=== PATIENT | male | born 1960 | race Two or more races ===

== ENCOUNTER 2022-11-28 04:47 | Emergency (ER) | payer MEDICARE ==
[~2022-11-28] VITALS: Ht 165.1 cm; Wt 62.0 kg
[2022-11-28 04:50] VITALS: O2SAT 98
[2022-11-28 05:09] LABS: HEMATOCRIT. 41.5 % (42.0-52.0); HEMOGLOBIN. 14.5 g/dL (14.0-18.0); MEAN CORPUSCULAR HGB CONC 34.8 g/dL (31.0-37.0); MEAN CORPUSCULAR VOLUME 94.9 fL (80.0-94.0); MEAN PLATELET VOLUME 9.7 fl (7.4-10.4); PLATELET 75 x1000/uL (130-400); RED BLOOD CELL COUNT 4.38 mill/uL (4.7-6.1); RED CELL DISTRIBUTION WIDTH 13.3 % (11.6-14.6); WHITE BLOOD COUNT 5.4 x1000/uL (4.5-11.0)
[2022-11-28 05:15] LABS: DIFFERENTIAL COMMENT 1
[2022-11-28 05:17] LABS: PLATELET ESTIMATE DECREASED
[2022-11-28 05:21] LABS: CALCIUM 7.9 mg/dL (8.5-10.1); CHLORIDE 108 mEq/L (98-107); INDEX HEMOLYSI 1 (1-3); INDEX ICTERIC 1 (1-4); INDEX LIPEMIC 1 (1-3); POTASSIUM 3.7 mEq/L (3.5-5.1); SODIUM 136 mEq/L (136-145)
[2022-11-28 05:29] LABS: ALANINE AMINOTRANSFERASE 38 IU/L (13-61); ALBUMIN 3.4 g/dL (3.4-5.0); ASPARTATE AMINOTRANSFERASE 46 IU/L (15-37); BILIRUBIN TOTAL 0.9 mg/dL (0.1-1.0); CARBON DIOXIDE 24 mEq/L (21-32); CREATININE 0.8 mg/dL (0.6-1.3); GLUCOSE 113 mg/dL (70-105); PROTEIN TOTAL 6.2 g/dL (6.0-8.3); TROPONIN I HIGH SENSITIVITY 20 ng/L (<78); UREA NITROGEN BLOOD 22 mg/dL (7-21)
[2022-11-28 07:36] LABS: NT PRO B-TYPE NATRIURETIC PEP 135 pg/mL (5-125); TROPONIN I HIGH SENSITIVITY 16 ng/L (<78)
[2022-11-28] MEDS ORDERED: ACETAMINOPHEN 325MG TABLET PO ONE (08:45)
[2022-11-28 09:30] LABS: CLARITY URINE CLEAR (CLEAR); COLOR URINE DARK YELLOW (YELLOW); GLUCOSE URINE NEGATIVE (NEGATIVE); KETONES URINE 1+ (NEGATIVE); LEUKOCYTE ESTERASE URINE 1+ (NEGATIVE); NITRITE URINE NEGATIVE (NEGATIVE); OCCULT BLOOD URINE 2+ (NEGATIVE); PH URINE 6.5 (4.5-8.0); PROTEIN URINE TRACE (NEGATIVE); SPECIFIC GRAVITY URINE 1.029 (1.005-1.030)
[2022-11-28 09:46] LABS: BACTERIA URINE 2+; MUCUS URINE 2+ /lpf (NONE/TRACE); SQUAMOUS EPITHELIAL CELL URINE NONE SEEN /lpf (RARE/1+); YEAST URINE NONE SEEN
[2022-11-28] MEDS ORDERED: CEFTRIAXONE 1GM PREMIX 50 ML IV ONE (10:00)
[2022-11-28 11:00] VITALS: BP 105/64; PULSE 82; RESP 18; TEMP 100
[2022-11-28] MEDS ORDERED: CIPR-263 MT (11:00)
== END 2022-11-28 11:36 | disposition home or self-care (01) ==
LOC: ER 04:47
DX: N39.0 Urinary tract infection, site not specified (principal); Z20.822 Contact with and (suspected) exposure to COVID-19
CPT/HCPCS: 99285; 96365; 71045; 87426; 80053; 81003; 83880; 85025; 84484; 36415; 93005; J0696; C9803

== ENCOUNTER 2023-01-18 13:11 | Emergency (ER) | payer MEDICARE ==
[~2023-01-18] VITALS: Ht 165.1 cm; Wt 70.0 kg
[~2023-01-18 13:11] MED LIST: FAMO20TA8 MT; P20 MT
[2023-01-18 13:18] VITALS: O2SAT 99
[2023-01-18] MEDS ORDERED: HYDROCODONE/ACETAMINOPHEN 5/325MG TABLET PO ONE (15:15)
[2023-01-18 15:51] LABS: HEMATOCRIT. 46.2 % (42.0-52.0); HEMOGLOBIN. 15.5 g/dL (14.0-18.0); MEAN CORPUSCULAR HEMOGLOBIN 32.7 pg (28.0-32.0); MEAN CORPUSCULAR HGB CONC 33.5 g/dL (31.0-37.0); MEAN CORPUSCULAR VOLUME 97.7 fL (80.0-94.0); MEAN PLATELET VOLUME 9.2 fl (7.4-10.4); PLATELET 110 x1000/uL (130-400); RED BLOOD CELL COUNT 4.73 mill/uL (4.7-6.1); RED CELL DISTRIBUTION WIDTH 13.2 % (11.6-14.6); WHITE BLOOD COUNT 11.3 x1000/uL (4.5-11.0)
[2023-01-18 15:53] LABS: DIFFERENTIAL COMMENT 1
[2023-01-18 15:57] LABS: INDEX HEMOLYSI 1 (1-3); INDEX ICTERIC 1 (1-4); INDEX LIPEMIC 1 (1-3); POTASSIUM 4.4 mEq/L (3.5-5.1); SODIUM 141 mEq/L (136-145)
[2023-01-18 15:58] LABS: PARTIAL THROMBOPLASTIN TIME 27.3 sec (23.4-31.0); PROTHROMBIN TIME 10.9 sec (9.6-11.0)
[2023-01-18 16:08] LABS: ALANINE AMINOTRANSFERASE 30 IU/L (13-61); ALBUMIN 3.2 g/dL (3.4-5.0); ASPARTATE AMINOTRANSFERASE 23 IU/L (15-37); BILIRUBIN TOTAL 0.9 mg/dL (0.1-1.0); CALCIUM 8.2 mg/dL (8.5-10.1); CREATININE 0.8 mg/dL (0.6-1.3); GLUCOSE 87 mg/dL (70-105); NT PRO B-TYPE NATRIURETIC PEP 58 pg/mL (5-125); PROTEIN TOTAL 6.4 g/dL (6.0-8.3); TROPONIN I HIGH SENSITIVITY 8 ng/L (<78); UREA NITROGEN BLOOD 18 mg/dL (7-21)
[2023-01-18 16:23] LABS: CARBON DIOXIDE 27 mEq/L (21-32); CHLORIDE 113 mEq/L (98-107)
[2023-01-18 16:58] LABS: PLATELET ESTIMATE DECREASED
[2023-01-18] MEDS ORDERED: TOPUD MT (19:11)
[2023-01-18] MEDS ORDERED: IBUP-2029 MT (19:11)
[2023-01-18] MEDS ORDERED: DOXY100C5 MT (19:11)
[2023-01-18 20:16] VITALS: BP 135/84; PULSE 70; RESP 18; TEMP 98.4
== END 2023-01-18 20:17 | disposition home or self-care (01) ==
LOC: ER 13:11
DX: N45.1 Epididymitis (principal)
CPT/HCPCS: 36415; 71045; 76870; 80053; 83880; 84484; 85025; 93005; 93976; 99285

== ENCOUNTER 2023-04-21 20:32 | Emergency (ER) | payer MEDICARE ==
[~2023-04-21] VITALS: Ht 162.6 cm; Wt 63.0 kg
[~2023-04-21 20:32] MED LIST changes: +DOXY100C5 MT; +IBUP-2029 MT; +TOPUD MT
[2023-04-21 20:46] VITALS: TEMP 98.5; O2SAT 95
[2023-04-21] MEDS ORDERED: DEXAMETHASONE 10 MG/ML VIAL IM NR (23:45)
[2023-04-21] MEDS ORDERED: IBUPROFEN 400MG TABLET PO ONE (23:45)
[2023-04-21] MEDS ORDERED: DEXAMETHASONE 10 MG/ML VIAL IM ONE (23:45)
[2023-04-22] MEDS: IBUPROFEN 400MG TABLET PO NR ×2 (00:33→00:34)
[2023-04-22 00:34] VITALS: BP 144/88; PULSE 95; RESP 20
[2023-04-22] MEDS ORDERED: IBUP-2028 MT (01:30)
== END 2023-04-22 02:02 | disposition home or self-care (01) ==
LOC: ER 20:32
DX: U07.1 COVID-19 (principal); J02.9 Acute pharyngitis, unspecified
CPT/HCPCS: 99284; 71045; 87426; 87430; 87070; 87804 ×2; 96372; J1100; C9803

== ENCOUNTER 2024-03-19 16:00 | Emergency (ER) | payer MEDICARE ==
[~2024-03-19] VITALS: Ht 170.2 cm; Wt 68.0 kg
[~2024-03-19 16:00] MED LIST changes: +IBUP-2028 MT
[2024-03-19 16:01] VITALS: TEMP 97.9; O2SAT 98
[2024-03-19] MEDS: MAGNESIUM/ALUMINUM HYDROXIDE/SIMETHICONE 30ML UDC PO ONE (16:25)
[2024-03-19] MEDS: FAMOTIDINE 20MG TABLET PO ONE (16:26)
[2024-03-19 17:07] LABS: CHLORIDE 112 mEq/L (98-107); POTASSIUM 3.6 mEq/L (3.5-5.1); SODIUM 143 mEq/L (136-145)
[2024-03-19 17:08] LABS: BASOPHILS % 0.5 % (0.0-2.0); CALCIUM 8.6 mg/dL (8.7-10.4); CARBON DIOXIDE 25 mEq/L (21-32); EOSINOPHILS % 8.4 % (0.0-5.0); HEMATOCRIT. 45.3 % (42.0-52.0); HEMOGLOBIN. 15.8 g/dL (14.0-18.0); LYMPHOCYTES % 12.7 % (20.0-50.0); MEAN CORPUSCULAR HEMOGLOBIN 32.1 pg (28.0-32.0); MEAN CORPUSCULAR HGB CONC 34.9 g/dL (31.0-37.0); MEAN CORPUSCULAR VOLUME 92.2 fL (80.0-94.0); NEUTROPHILS % 67.4 % (40.0-76.0); PLATELET 115 x1000/uL (130-400); RED BLOOD CELL COUNT 4.91 mill/uL (4.7-6.1); RED CELL DISTRIBUTION WIDTH 13.5 % (11.6-14.6); WHITE BLOOD COUNT 6.5 x1000/uL (4.5-11.0)
[2024-03-19 17:13] LABS: GLUCOSE 109 mg/dL (70-105); UREA NITROGEN BLOOD 21 mg/dL (9-23)
[2024-03-19 17:14] LABS: TROPONIN I HIGH SENSITIVITY 6 ng/L (3.0-53)
[2024-03-19 17:15] LABS: ALANINE AMINOTRANSFERASE 21 IU/L (10-49); ASPARTATE AMINOTRANSFERASE 24 IU/L (<34); BILIRUBIN DIRECT 0.3 mg/dL (<=3.0)
[2024-03-19 17:16] LABS: BILIRUBIN TOTAL 0.9 mg/dL (0.1-1.0); PROTEIN TOTAL 5.7 g/dL (6.0-8.3)
[2024-03-19 18:16] VITALS: BP 144/79; PULSE 77; RESP 16; O2SAT 99
== END 2024-03-19 18:17 | disposition home or self-care (01) ==
LOC: ER 16:00
DX: K21.9 Gastro-esophageal reflux disease without esophagitis (principal); Z79.899 Other long term (current) drug therapy
CPT/HCPCS: 36415; 71045; 80048; 80076; 84484; 85025; 93005; 99285

== ENCOUNTER 2024-05-30 03:33 | Emergency (ER) | payer MEDICARE ==
[~2024-05-30] VITALS: Ht 167.6 cm; Wt 90.0 kg
[2024-05-30 03:38] VITALS: BP 127/79; PULSE 70; RESP 18; TEMP 36.8; O2SAT 98
== END 2024-05-30 07:17 | disposition left against medical advice (07) ==
LOC: ER 03:33
DX: R07.89 Other chest pain (principal); Z79.899 Other long term (current) drug therapy
CPT/HCPCS: 71045; 93005; 99283

== ENCOUNTER 2024-11-09 21:12 | Emergency (ER) | payer MEDICARE, OTHER ==
[~2024-11-09] VITALS: Ht 162.6 cm; Wt 82.0 kg
[2024-11-09 21:56] VITALS: TEMP 36.7; O2SAT 95
[2024-11-09 22:45] LABS: PLATELET 116 x1000/uL (130-400); RED BLOOD CELL COUNT 4.58 mill/uL (4.7-6.1); RED CELL DISTRIBUTION WIDTH 12.8 % (11.6-14.6)
[2024-11-09 22:59] LABS: CREATININE 0.9 mg/dL (0.6-1.3); TROPONIN I HIGH SENSITIVITY 6 ng/L (3.0-53); UREA NITROGEN BLOOD 20 mg/dL (9-23)
[2024-11-10] MEDS ORDERED: METHYLPREDNISOLONE SOD SUCC 125MG/2ML (ACT-O-VIAL) IV ONE (01:15)
[2024-11-10] MEDS: SODIUM CHLORIDE 0.9% IV NR (02:55)
[2024-11-10] MEDS: METHYLPREDNISOLONE SOD SUCC IV NR (02:55)
[2024-11-10] MEDS: KETOROLAC 30MG/ML VIAL IM ONE (05:00)
[2024-11-10 05:06] VITALS: BP 138/86; PULSE 88; RESP 16; O2SAT 95
== END 2024-11-10 05:18 | disposition home or self-care (01) ==
LOC: ER 21:12
DX: M79.606 Pain in leg, unspecified (principal); G35 Multiple sclerosis; Z79.899 Other long term (current) drug therapy; Z90.49 Acquired absence of other specified parts of digestive tract
CPT/HCPCS: 80048; 85027; 84484; 36415; 71045; 93005; 99285; 96365; 96372; J1885; J2919; J2930; J7050